=== PATIENT | female | born 1980 | race Caucasian/White ===

== ENCOUNTER 2016-12-27 16:48 | Emergency (ER) | payer BC ==
[~2016-12-27] VITALS: Ht 165.1 cm; Wt 109.3 kg
[~2016-12-27 16:48] MED LIST: CHOL2000 PO; LEVO112T4 PO; OMEP40CA PO
[2016-12-27 17:01] VITALS: TEMP 36.8; Ht 165.1 cm; Wt 109.3 kg
[2016-12-27] MEDS ORDERED: ZOLP10TA PO (18:10)
[2016-12-27] MEDS ORDERED: SODIUM CHLORIDE 0.9% 1000ML 1,000 ML IV STA (18:13)
[2016-12-27] MEDS ORDERED: ONDANSETRON INJ 2 MG/ML 2 ML VIAL IV STA (18:13)
[2016-12-27] MEDS ORDERED: OPTIRAY 320 IV PRN (18:30)
[2016-12-27 18:43] LABS: BASO % 0.3 %; BASO ABS # 0.03 K/uL (0-0.2); COMPLETE YES; EOS % 3.8 %; HEMATOCRIT 42.4 % (37-47); IG% 0.3 %; LYMPH % 25.5 %; LYMPH ABS # 3.05 K/uL (1.2-3.4); MEAN CELL VOLUME 90.4 fL (80-100); MEAN CORPUSCULAR HEMOGLOBIN 31.1 pg (25-34); MEAN CORPUSCULAR HGB CONC 34.4 g/dl (32-36); MEAN PLATELET VOLUME 11.5 fL (7.4-10.4); MONO % 7.2 %; NEUT % 62.9 %; PLATELET COUNT 267 K/uL (130-400); RED BLOOD COUNT 4.69 M/uL (4.2-5.4); WHITE BLOOD COUNT 11.97 K/uL (4.8-10.8)
[2016-12-27] MEDS ORDERED: DULO60CA44 PO (18:45)
[2016-12-27] MEDS ORDERED: OMEP40CA41 PO (18:45)
[2016-12-27 18:46] LABS: BUN/CREATININE RATIO 13.6 (10-20); CREATININE 0.83 mg/dl (0.60-1.20); POTASSIUM 3.8 mmol/L (3.5-5.1)
[2016-12-27 18:49] LABS: MANUAL MICROSCOPIC REQUIRED? NO; REVIEW REQ? NO; URINE APPEARANCE CLEAR (CLEAR); URINE BILIRUBIN NEG (NEG); URINE COLOR YELLOW; URINE NITRITE NEG (NEG); URINE PH 5.5 (4.5-7.5); UROBILINOGEN NEG (NEG)
[2016-12-27] MEDS ORDERED: MoRPHine SULFATE 4 MG/ML 1 ML CARP\\VIAL IV PRN (19:30)
[2016-12-27] MEDS ORDERED: LORAZEPAM 2 MG/ML 1 ML VIAL IV STA (20:38)
--- NOTE | 2016-12-27 21:20 | DIAGNOSTIC IMAGING REPORT ---
ABDOMEN AND PELVIS CT WITH IV AND ORAL CONTRAST CT DOSE: 1275.24 mGy.cm HISTORY: Generalized abdominal pain. TECHNIQUE: Multiaxial CT images of the abdomen and pelvis were performed following the use of intravenous and oral contrast. COMPARISON STUDY: Abdominal ultrasound 02/01/2016. FINDINGS: The lung bases are clear. Cholecystectomy. Hepatic steatosis. The spleen, pancreas, adrenal glands, and kidneys are unremarkable. No retroperitoneal lymphadenopathy. Normal bladder. The uterus is unremarkable. The ovaries are symmetric. No bowel wall thickening or obstruction. A few colonic diverticula. Normal appendix. IMPRESSION: 1. No bowel wall thickening or obstruction. 2. Normal appendix. 3. Cholecystectomy. 4. Hepatic steatosis. Electronically signed by: Abiel Borrego M.D. 12/27/2016 9:18 PM Dictated Date/Time: 12/27/2016 9:12 PM
[2016-12-28] MEDS ORDERED: ONDANSETRON HOME PACK 4MG OD TAB PO ONE
[2016-12-28] MEDS ORDERED: ONDA4TAB10 SL (00:03)
--- NOTE | 2016-12-28 00:12 | EMERGENCY ROOM VISIT NOTE ---
ED Visit Note First contact with patient: 22:09 Patient care was assumed from Akhil Sewell PA-C at the time of shift change. Please see Mr. Sewell's dictation for full history of present illness and emergency Department course prior to my assumption of care. At the time of shift change the patient had blood work and CT scan done for abdominal pain. She does have a very mild white blood cell count elevation. Her CT scan did not show obvious findings to describe her symptoms. Because of this ultrasound was performed. Ultrasound was read by [facility] as below: Preliminary Findings Only See Final Report For Complete Findings US PELVIC/ENDOVAG: Comparison same day CT abdomen pelvis. Surgically absent uterus. Cervix appears within normal limits. Small cysts within the right ovary which contains normal blood flow. Normal blood flow to the left ovary which contains a 2 cm cyst which is probably benign. No free fluid. No adnexal masses. Bladder is grossly unremarkable. On repeat abdominal examination, the patient does not have significant tenderness or evidence of peritonitis. I discussed the patient's findings at length with her and her . Overall the patient does appear stable for discharge home. I offered her pain medication to use at home, but she declined. She would like some nausea medicine which appears reasonable. The patient will be given a short course of Zofran. I strongly recommended the patient see her primary care physician in the next few days. She was also thoroughly educated on the importance of returning to the ER with any new, worsening, or concerning symptoms. The patient does appear reasonable and understands the importance of returning if she has evolution of her symptoms. She was discharged home in the care of her who is acting as the entry level truck driver today. Current/Historical Medications Scheduled Cholecalciferol (Vitamin D3), 4,000 INTER.UNIT PO QAM Duloxetine Hcl (Cymbalta), 60 MG PO HS Levothyroxine Sodium (Levothyroxine Sodium), 112 MCG PO DAILY Omeprazole (Prilosec), 40 MG PO QAM Ondasetron Odt (Zofran Odt), 4 MG SL Q6H Scheduled PRN Zolpidem Tartrate (Ambien), 5 MG PO HS PRN for Sleep Allergies Coded Allergies: Adhesives (Verified Allergy, Unknown, RASH, 02/22/16) Sulfamethoxazole w/Trimethoprim (Verified Allergy, Unknown, RASH, 02/22/16) Vital Signs Date Time Temp Pulse Resp B/P Pulse Ox O2 Delivery O2 Flow Rate FiO2 12/27/16 22:17 80 18 143/71 12/27/16 19:36 60 18 152/83 98 Room Air 12/27/16 19:22 59 12/27/16 17:01 36.8 72 18 164/100 97 Room Air Laboratory Results 12/27/16 18:10 Red Blood Count 4.69, Mean Corpuscular Volume 90.4, Mean Corpuscular Hemoglobin 31.1, Mean Corpuscular Hemoglobin Concent 34.4, Mean Platelet Volume 11.5, Neutrophils (%) (Auto) 62.9, Lymphocytes (%) (Auto) 25.5, Monocytes (%) (Auto) 7.2, Eosinophils (%) (Auto) 3.8, Basophils (%) (Auto) 0.3, Neutrophils # (Auto) 7.54, Lymphocytes # (Auto) 3.05, Monocytes # (Auto) 0.86, Eosinophils # (Auto) 0.45, Basophils # (Auto) 0.03 12/27/16 18:10 Test 12/27/16 18:00 12/27/16 18:10 Urine Color YELLOW Urine Appearance CLEAR (CLEAR) Urine pH 5.5 (4.5-7.5) Urine Specific [place] 1.010 (1.000-1.030) Urine Protein NEG (NEG) Urine Glucose (UA) NEG (NEG) Urine Ketones NEG (NEG) Urine Occult Blood NEG (NEG) Urine Nitrite NEG (NEG) Urine Bilirubin NEG (NEG) Urine Urobilinogen NEG (NEG) Urine Leukocyte Esterase NEG (NEG) White Blood Count 11.97 K/uL (4.8-10.8) Red Blood Count 4.69 M/uL (4.2-5.4) Hemoglobin 14.6 g/dL (12.0-16.0) Hematocrit 42.4 % (37-47) Mean Corpuscular Volume 90.4 fL (80-100) Mean Corpuscular Hemoglobin 31.1 pg (25-34) Mean Corpuscular Hemoglobin Concent 34.4 g/dl (32-36) Platelet Count 267 K/uL (130-400) Mean Platelet Volume 11.5 fL (7.4-10.4) Neutrophils (%) (Auto) 62.9 % Lymphocytes (%) (Auto) 25.5 % Monocytes (%) (Auto) 7.2 % Eosinophils (%) (Auto) 3.8 % Basophils (%) (Auto) 0.3 % Neutrophils # (Auto) 7.54 K/uL (1.4-6.5) Lymphocytes # (Auto) 3.05 K/uL (1.2-3.4) Monocytes # (Auto) 0.86 K/uL (0.11-0.59) Eosinophils # (Auto) 0.45 K/uL (0-0.5) Basophils # (Auto) 0.03 K/uL (0-0.2) RDW Standard Deviation 42.2 fL (36.4-46.3) RDW Coefficient of Variation 12.8 % (11.5-14.5) Immature Granulocyte % (Auto) 0.3 % Immature Granulocyte # (Auto) 0.04 K/uL (0.00-0.02) Anion Gap 5.0 mmol/L (3-11) Est Creatinine Clear Calc Drug Dose 113.0 ml/min Estimated GFR () 103.7 Estimated GFR (Non- 89.5 BUN/Creatinine Ratio 13.6 (10-20) Calcium Level 9.0 mg/dl (8.5-10.1) Total Bilirubin 0.5 mg/dl (0.2-1) Direct Bilirubin 0.1 mg/dl (0-0.2) Aspartate Amino Transf (AST/SGOT) 40 U/L (15-37) Alanine Aminotransferase (ALT/SGPT) 127 U/L (12-78) Alkaline Phosphatase 100 U/L (45-117) Total Protein 7.7 gm/dl (6.4-8.2) Albumin 3.7 gm/dl (3.4-5.0) Lipase 268 U/L (73-393) Medications Administered Medications (Trade) Dose Ordered Sig/Eitan Route Start Time Stop Time Status Last Admin Dose Admin Sodium Chloride (Nss 1000ml) 1,000 ml @ 999 mls/hr Q1H1M STAT IV 12/27/16 18:13 12/27/16 19:13 DC 12/27/16 18:23 999 MLS/HR Ondansetron HCl (Zofran Inj) 4 mg NOW STAT IV 12/27/16 18:13 12/27/16 18:15 DC 12/27/16 18:22 4 MG Morphine Sulfate (MoRPHine SULFATE INJ) 4 mg Q1H PRN IV 12/27/16 19:30 01/10/17 19:29 12/27/16 19:35 4 MG Lorazepam (Ativan Inj) 0.5 mg NOW STAT IV 12/27/16 20:38 12/27/16 20:40 DC 12/27/16 20:47 0.5 MG Departure Information Impression Primary Impression: Abdominal pain Additional Impression: Nausea Dispostion Home / Self-Care Condition GOOD Prescriptions Ondasetron Odt (ZOFRAN ODT) 4 Mg Tab 4 MG SL Q6H for Nausea, #12 TAB Prov: Chad Lane PA-C 12/28/16 Forms Call Back Authorization, HOME CARE DOCUMENTATION FORM, Work Instructions, Additional Instructions: Patient seen and evaluated today in the emergency department medical care. Return to work on 12/30/2016. Please excuse. IMPORTANT VISIT INFORMATION Patient Instructions [facility] Additional Instructions You were seen and evaluated today on an emergency basis only. This is not a substitute for, or an effort to provide, complete comprehensive medical care. It is not possible to recognize and treat all injuries or illnesses in a single emergency department visit. For this reason it is recommended that you followup with your primary care physician this week for ongoing care and evaluation. Drink plenty of fluids and remain well hydrated. Zofran 1 tablet every 6 hrs as needed for nausea. You are welcome to return to the emergency department anytime with new, worsening, or concerning symptoms. Work Instructions Additional Work Instructions: Patient seen and evaluated today in the emergency department medical care. Return to work on 12/30/2016. Please excuse. Problem Qualifiers
[2016-12-28 00:20] VITALS: BP 128/70; PULSE 79; O2SAT 98
--- NOTE | 2016-12-28 06:26 | DIAGNOSTIC IMAGING REPORT ---
EXAMINATION: PELVIC ULTRASOUND CLINICAL HISTORY: hx partial hysterectomy; RLQ pain COMPARISON STUDY: None FINDINGS: The uterus measured absent surgically. The endometrial stripe measured . The right ovary measured 3.1 cm with normal vascular flow. The left ovary measured 3.1 cm with normal vascular flow. 2 cm cyst.. There is no ultrasonographic evidence of ovarian torsion. It should be noted that ovarian torsion can be present with normal Doppler ultrasonographic findings. There was no evidence of pathologic free pelvic fluid. IMPRESSION: 2 cm left ovarian cyst. Otherwise negative study status post partial hysterectomy. Electronically signed by: Vic Godfrey M.D. 12/28/2016 6:25 AM Dictated Date/Time: 12/28/2016 6:23 AM
--- NOTE | 2016-12-28 10:41 | EMERGENCY ROOM VISIT NOTE ---
ED Visit Note First contact with patient: 17:59 Chief Complaint: Abdominal pain. History of Present Illness: Ms. Flores is a 36 year-old white female who ambulates into the ED complaining of right lower quadrant abdominal pain. Historically patient reports she has a history of GERD, gastritis, colitis and is status post section 2, cholecystectomy and hysterectomy. Patient reports a gradual onset of crampy pain just superior to the umbilicus quadrant abdominal pain that started 2 days ago. Since that time the pain has been gradually increasing in intensity and over the last 12 hours the pain has radiated into the right lower quadrant. Currently she describes the pain as a sharp sensation at rest that becomes stabbing with movement. She rates her discomfort 4/10 at rest and then escalates to 7/10. She has not identified any other aggravating factors except movement of her pain and rest keep her pain at baseline. She reports shortly after the onset of pain she took ibuprofen without relief of her discomfort. Associated with her discomfort she reports that she has been having chills without per fever and nausea without vomiting. Patient denies sweats, skin eruptions, skin color changes, upper respiratory tract symptoms, shortness of breath, chest pain, diarrhea, constipation, rectal bleeding, black/tarry stools, urinary symptoms, hematuria, vaginal bleeding, vaginal discharge, back/flank pain. Review of Systems: As noted above in history of present illness. All body systems were reviewed and found to be negative as noted above. Past Medical History: As previously noted and kidney stones, hypothyroidism. Current Medications: Levothyroxine, vitamins, Ambien, Prilosec, Cymbalta. Allergies to Medications: Bactrim. Social History: Patient is currently employed; she feels safe in her home environment; she admits to tobacco use and denies alcohol use. Physical Examination: Vital Signs: Date Time Temp Pulse Resp B/P Pulse Ox O2 Delivery O2 Flow Rate FiO2 12/28/16 00:20 79 18 128/70 98 12/27/16 22:17 80 18 143/71 12/27/16 19:36 60 18 152/83 98 Room Air 12/27/16 19:22 59 12/27/16 17:01 36.8 72 18 164/100 97 Room Air GENERAL: 36-year-old female in mild to moderate distress due to pain, nontoxic- appearing, afebrile and hemodynamically stable. NEUROLOGICAL: Awake, alert and oriented to person, place and time. Answering questions appropriately and following commands. Normal gait. Good hand eye coordination. SKIN: Warm, dry and pink. No soft tissue eruptions or trauma noted. HEENT: Atraumatic and normocephalic. PERRLA. Sclera white and conjunctiva pink. Oral cavity moist and pink. Pharynx is nonerythematous or edematous. Speech normal. No lymphadenopathy. Trachea midline. No jugular venous distention. BACK: No tenderness over the bony spine. No CVA tenderness. THORAX: Lungs sounds are clear to auscultation and equal bilaterally with symmetrical chest wall. No wheezing, rales or rhonchi. No crepitus, tenderness , subcutaneous air or deformities noted. HEART: Regular rate and rhythm. No gallops, rubs or murmurs are appreciated. ABDOMEN: Obese and soft with moderate tenderness in the area just superior to McBurney's point and extending superiorly to the mid quadrant with mild guarding.. Positive bowel sounds in all quadrants. No rigidity or organomegaly. EXTREMITIES: Moves all extremities well on command and with purpose. All distal neurovascular statuses are intact and equal bilaterally. ED Course: Patient is assessed as noted above. Laboratory Testing: Test 12/27/16 18:00 12/27/16 18:10 Range/Units Urine Color YELLOW Urine Appearance CLEAR CLEAR Urine pH 5.5 4.5-7.5 Urine Specific [place] 1.010 1.000-1.030 Urine Protein NEG NEG Urine Glucose (UA) NEG NEG Urine Ketones NEG NEG Urine Occult Blood NEG NEG Urine Nitrite NEG NEG Urine Bilirubin NEG NEG Urine Urobilinogen NEG NEG Urine Leukocyte Esterase NEG NEG White Blood Count 11.97 4.8-10.8 K/uL Red Blood Count 4.69 4.2-5.4 M/uL Hemoglobin 14.6 12.0-16.0 g/dL Hematocrit 42.4 37-47 % Mean Corpuscular Volume 90.4 80-100 fL Mean Corpuscular Hemoglobin 31.1 25-34 pg Mean Corpuscular Hemoglobin Concent 34.4 32-36 g/dl Platelet Count 267 130-400 K/uL Mean Platelet Volume 11.5 7.4-10.4 fL Neutrophils (%) (Auto) 62.9 % Lymphocytes (%) (Auto) 25.5 % Monocytes (%) (Auto) 7.2 % Eosinophils (%) (Auto) 3.8 % Basophils (%) (Auto) 0.3 % Neutrophils # (Auto) 7.54 1.4-6.5 K/uL Lymphocytes # (Auto) 3.05 1.2-3.4 K/uL Monocytes # (Auto) 0.86 0.11-0.59 K/uL Eosinophils # (Auto) 0.45 0-0.5 K/uL Basophils # (Auto) 0.03 0-0.2 K/uL RDW Standard Deviation 42.2 36.4-46.3 fL RDW Coefficient of Variation 12.8 11.5-14.5 % Immature Granulocyte % (Auto) 0.3 % Immature Granulocyte # (Auto) 0.04 0.00-0.02 K/uL Sodium Level 141 136-145 mmol/L Potassium Level 3.8 3.5-5.1 mmol/L Chloride Level 103 98-107 mmol/L Carbon Dioxide Level 33 21-32 mmol/L Anion Gap 5.0 3-11 mmol/L Blood Urea Nitrogen 11 7-18 mg/dl Creatinine 0.83 0.60-1.20 mg/dl Est Creatinine Clear Calc Drug Dose 113.0 ml/min Estimated GFR () 103.7 Estimated GFR (Non- 89.5 BUN/Creatinine Ratio 13.6 10-20 Random Glucose 97 70-99 mg/dl Calcium Level 9.0 8.5-10.1 mg/dl Total Bilirubin 0.5 0.2-1 mg/dl Direct Bilirubin 0.1 0-0.2 mg/dl Aspartate Amino Transf (AST/SGOT) 40 15-37 U/L Alanine Aminotransferase (ALT/SGPT) 127 12-78 U/L rAlkaline Phosphatase 100 45-117 U/L Total Protein 7.7 6.4-8.2 gm/dl Albumin 3.7 3.4-5.0 gm/dl Lipase 268 73-393 U/L Contrast Abdominal/Pelvic CT: Was reviewed by myself and read by the radiologist and showing lung bases are clear, status post cholecystectomy, hepatic steatosis, spleen/pancreas/adrenal glands/kidneys are unremarkable, no retroperitoneal lymphadenopathy, normal-appearing bladder, ovaries are symmetrical, no bowel wall thickening or obstruction, a few colonic diverticula and normal-appearing appendix. Transvaginal/Pelvic Ultrasound: Pending. Patient was hydrated with normal saline; she initially received 4 mg of Zofran IV for nausea; she refused narcotics for pain. She did cough and the nursing staff and the patient requested narcotics for pain and she was given 4 mg of morphine IV; then received an additional call for the nursing reporting patient was having more pain more diffusely in her abdomen. She was reassessed and reported to me previously that when she was given morphine she gets abdominal cramping primarily in the stomach area. I ordered for her 0.5 mg of Ativan IV which subsequently relieved the cramping and did reevaluate her abdomen present post Ativan and she was experiencing tenderness and right lower quadrant as previously described but no signs of peritonitis. Patient was reassessed multiple times during her stay in the emergency department. Patient's case was reviewed with Dr. Mistry; we agreed on diagnostic approach, treatment, disposition and plan. Patient's care was transferred to Chad Lane PA-C at the end of my shift pending ultrasound testing and results. Patient was educated about tonalok's findings. Clinical Impression: Right lower quadrant abdominal pain. Decision-Making: Initially my differential diagnosis I considered appendicitis, hearing cyst rupture, constipation, bowel obstruction, diverticulitis, urinary tract infection and other causes. Disposition and Plan: Please see Mr. Lane's notes and orders for final disposition and plan.
[2016-12-28] MEDS ORDERED: PRED20TA PO (14:41)
== END 2016-12-28 00:21 | disposition home or self-care (01) ==
LOC: C.EDB 16:49
DX: R10.31 Right lower quadrant pain (principal); K21.9 Gastro-esophageal reflux disease without esophagitis; E03.9 Hypothyroidism, unspecified; F17.200 Nicotine dependence, unspecified, uncomplicated; Z79.899 Other long term (current) drug therapy; Z87.442 Personal history of urinary calculi; Z88.8 Allergy status to other drugs, medicaments and biological substances

== ENCOUNTER 2016-12-28 11:43 | Emergency (ER) | payer BC ==
[~2016-12-28] VITALS: Ht 165.1 cm; Wt 109.6 kg
[~2016-12-28 11:43] MED LIST changes: +DULO60CA44 PO; +OMEP40CA41 PO; +ONDA4TAB10 SL; +ZOLP10TA PO
[2016-12-28 11:47] VITALS: TEMP 37; Ht 165.1 cm; Wt 109.6 kg
[2016-12-28] MEDS ORDERED: DiphenhydrAMINE HCL 50 MG/ML VIAL IV STA (12:34)
[2016-12-28] MEDS ORDERED: SODIUM CHLORIDE 0.9% 1000ML 1,000 ML IV STA (12:34)
[2016-12-28] MEDS ORDERED: FAMOTIDINE 20MG/102 ML D5W IV STA (12:34)
[2016-12-28] MEDS ORDERED: METHYLPREDNISOLONE 125 MG VIAL IV STA (12:34)
--- NOTE | 2016-12-28 12:40 | EMERGENCY ROOM VISIT NOTE ---
History Report prepared by Jeanette: Tho Reed Under the Supervision of: Dr. Ann Pittman M.D. First contact with patient: 12:18 Chief Complaint: ALLERGIC REACTION Stated Complaint: REACTION TO CT DYE Nursing Triage Summary: thinks she is having an allergic reaction to her ct contrast that was given to her last night History of Present Illness The patient is a 36 year old female who presents to the Emergency Room with complaints of persistent rash that started last night. The patient had complains of feeling hot and itchy. She notes the rash is red. With walking, the patient experienced some shortness of breath, but laying down she feels fine. Last night, she was in the ED for abdominal pain that had started 3 days ago. She is still having this discomfort today. She was given contrast for a CT scan and medications including Zofran, Ativan, and Morphine. The patient denies urinary symptoms. Source of History: patient Onset: last night Position: other (global) Timing: other (persistent) Associated Symptoms: + SOB (with walking), + abdominal pain, No urinary symptoms Note: Other associated symptoms: feeling itchy and hot Review of Systems See HPI for pertinent positives & negatives. A total of 10 systems reviewed and were otherwise negative. Past Medical & Surgical Medical Problems: (1) Asthma Surgical Problems: (1) delivery delivered (2) History of cholecystectomy Family History FH: seizures Kidney stone Lung disease Social History Smoking Status: Current Every Day Smoker Marital Status: Housing Status: lives with family Occupation Status: employed Current/Historical Medications Scheduled Cholecalciferol (Vitamin D3), 4,000 INTER.UNIT PO QAM Duloxetine Hcl (Cymbalta), 60 MG PO HS Levothyroxine Sodium (Levothyroxine Sodium), 112 MCG PO DAILY Omeprazole (Prilosec), 40 MG PO QAM Ondasetron Odt (Zofran Odt), 4 MG SL Q6H Prednisone (Prednisone), 40 MG PO DAILY Scheduled PRN Zolpidem Tartrate (Ambien), 5 MG PO HS PRN for Sleep Allergies Coded Allergies: Adhesives (Verified Allergy, Unknown, RASH, 02/22/16) Sulfamethoxazole w/Trimethoprim (Verified Allergy, Unknown, RASH, 02/22/16) Physical Exam Vital Signs Date Time Temp Pulse Resp B/P Pulse Ox O2 Delivery O2 Flow Rate FiO2 12/28/16 14:39 63 16 145/86 96 12/28/16 14:02 64 18 132/78 93 Room Air 12/28/16 12:47 65 18 120/76 96 Room Air 12/28/16 12:45 71 12/28/16 12:13 95 Room Air 12/28/16 11:47 37.0 84 18 147/87 96 Room Air Physical Exam Vital signs reviewed. General: Well-appearing female, in no significant distress. HEENT: No scleral icterus, PERRLA, neck supple. Atraumatic. No swelling to oral mucosa. Cardiovascular: Regular rate and rhythm, no extra sounds. Pulmonary: Clear to auscultation bilaterally, normal work of breathing. Abdomen: Soft, tenderness to palpation of RLQ, nondistended, positive bowel sounds. Musculoskeletal: Atraumatic, no peripheral edema. Neurologic: Patient awake alert and oriented x 3, full strength in all 4 extremities. Cranial nerves 2 through 12 grossly intact. Skin: Erythema to face, upper chest, and upper arm. Medical Decision & Procedures Laboratory Results 12/28/16 12:06 Red Blood Count 4.56, Mean Corpuscular Volume 87.9, Mean Corpuscular Hemoglobin 30.7, Mean Corpuscular Hemoglobin Concent 34.9, Mean Platelet Volume 11.2, Neutrophils (%) (Auto) 71.4, Lymphocytes (%) (Auto) 19.6, Monocytes (%) (Auto) 5.4, Eosinophils (%) (Auto) 3.0, Basophils (%) (Auto) 0.2, Neutrophils # (Auto) 6.97, Lymphocytes # (Auto) 1.91, Monocytes # (Auto) 0.53, Eosinophils # (Auto) 0.29, Basophils # (Auto) 0.02 12/28/16 12:06 Test 12/28/16 12:06 White Blood Count 9.76 K/uL (4.8-10.8) Red Blood Count 4.56 M/uL (4.2-5.4) Hemoglobin 14.0 g/dL (12.0-16.0) Hematocrit 40.1 % (37-47) Mean Corpuscular Volume 87.9 fL (80-100) Mean Corpuscular Hemoglobin 30.7 pg (25-34) Mean Corpuscular Hemoglobin Concent 34.9 g/dl (32-36) Platelet Count 252 K/uL (130-400) Mean Platelet Volume 11.2 fL (7.4-10.4) Neutrophils (%) (Auto) 71.4 % Lymphocytes (%) (Auto) 19.6 % Monocytes (%) (Auto) 5.4 % Eosinophils (%) (Auto) 3.0 % Basophils (%) (Auto) 0.2 % Neutrophils # (Auto) 6.97 K/uL (1.4-6.5) Lymphocytes # (Auto) 1.91 K/uL (1.2-3.4) Monocytes # (Auto) 0.53 K/uL (0.11-0.59) Eosinophils # (Auto) 0.29 K/uL (0-0.5) Basophils # (Auto) 0.02 K/uL (0-0.2) RDW Standard Deviation 40.3 fL (36.4-46.3) RDW Coefficient of Variation 12.6 % (11.5-14.5) Immature Granulocyte % (Auto) 0.4 % Immature Granulocyte # (Auto) 0.04 K/uL (0.00-0.02) Anion Gap 8.0 mmol/L (3-11) Est Creatinine Clear Calc Drug Dose 109.3 ml/min Estimated GFR () 99.3 Estimated GFR (Non- 85.7 BUN/Creatinine Ratio 12.4 (10-20) Calcium Level 8.9 mg/dl (8.5-10.1) Magnesium Level 1.8 mg/dl (1.8-2.4) Total Bilirubin 0.5 mg/dl (0.2-1) Direct Bilirubin 0.1 mg/dl (0-0.2) Aspartate Amino Transf (AST/SGOT) 67 U/L (15-37) Alanine Aminotransferase (ALT/SGPT) 166 U/L (12-78) Alkaline Phosphatase 121 U/L (45-117) Total Protein 7.2 gm/dl (6.4-8.2) Albumin 3.4 gm/dl (3.4-5.0) Laboratory results per my review. Medications Administered Medications (Trade) Dose Ordered Sig/Eitan Route Start Time Stop Time Status Last Admin Dose Admin Diphenhydramine HCl (Benadryl Inj) 50 mg NOW STAT IV 3/22/17 12:34 12/28/16 12:36 DC 12/28/16 12:41 50 MG Methylprednisolone Sodium Succinate 125 mg 125 mg NOW STAT IV 12/28/16 12:34 12/28/16 12:36 DC 12/28/16 12:41 125 MG Sodium Chloride (Nss 1000ml) 1,000 ml @ 999 mls/hr Q1H1M STAT IV 12/28/16 12:34 12/28/16 13:34 DC 12/28/16 12:41 999 MLS/HR Famotidine (Pepcid 20mg/100 ml) 20 mg ONE STAT IV 12/28/16 12:34 12/28/16 12:36 DC 12/28/16 12:41 20 MG ED Course 1231: Past medical records reviewed. The patient was evaluated in room A9. A complete history and physical examination was performed. 1234: Ordered Famotidine 20 mg IV, NSS 1000 ml @ 999 mls/hr IV, Solu-Medrol IV 125 mg IV, Benadryl Inj 50 mg IV. 1414: Upon reevaluation, the patient appeared to have improvement of her symptoms. I discussed findings with her. She verbalized agreement of the treatment plan. The patient was discharged home. Medical Decision Differential diagnosis: Etiologies such as allergic reaction, anaphylaxis, urticaria, Obando-Frederick syndrome, toxic epidermal necrolysis, erythema multiforme, cellulitis, as well as others were entertained. This patient was evaluated and appeared to be in no significant distress. IV access was obtained and laboratory work was drawn. The patient was given IV Benadryl, IV Solu-Medrol and IV Pepcid along with IV hydration. Laboratory work reveals elevated liver enzymes consistent with previous numbers. I suspect the patient is having a delayed reaction to the IV contrast. She was given a prescription for 4 more days of oral prednisone and will use Benadryl as needed. The patient was instructed to avoid IV CT contrast in the future or request pretreatment. She will return to the ER for worsening of symptoms or any medical concerns. Impression Primary Impression: Allergic reaction Scribe Attestation The scribe's documentation has been prepared under my direction and personally reviewed by me in its entirety. I confirm that the note above accurately reflects all work, treatment, procedures, and medical decision making performed by me. Departure Information Dispostion Home / Self-Care Prescriptions Prednisone (Prednisone) 20 Mg Tab 40 MG PO DAILY, #8 TAB Prov: Ann Pittman M.D. 12/28/16 Referrals [place] Nicole M.D. (PCP) Forms HOME CARE DOCUMENTATION FORM, IMPORTANT VISIT INFORMATION Patient Instructions My [facility] Additional Instructions Diagnosis: Allergic reaction Benadryl 25-50 mg every 6 hours as needed for allergic symptoms. Prednisone 40 mg daily for 4 more days. Drink plenty of clear fluids. Avoid CT IV contrast in the future or request pretreatment. Follow-up with your physician this week for reevaluation of the abdominal discomfort. Return to the ER for worsening of symptoms or any medical concerns. Problem Qualifiers Primary Impression: Allergic reaction Encounter type: initial encounter Qualified Codes: T78.40XA - Allergy, unspecified, initial encounter
[2016-12-28 12:45] LABS: BASO % 0.2 %; BASO ABS # 0.02 K/uL (0-0.2); COMPLETE YES; HEMATOCRIT 40.1 % (37-47); IG% 0.4 %; LYMPH % 19.6 %; LYMPH ABS # 1.91 K/uL (1.2-3.4); MEAN CELL VOLUME 87.9 fL (80-100); MEAN CORPUSCULAR HEMOGLOBIN 30.7 pg (25-34); MEAN CORPUSCULAR HGB CONC 34.9 g/dl (32-36); MEAN PLATELET VOLUME 11.2 fL (7.4-10.4); MONO % 5.4 %; NEUT % 71.4 %; PLATELET COUNT 252 K/uL (130-400); RED BLOOD COUNT 4.56 M/uL (4.2-5.4); WHITE BLOOD COUNT 9.76 K/uL (4.8-10.8)
[2016-12-28 12:58] LABS: BUN/CREATININE RATIO 12.4 (10-20); CALCIUM 8.9 mg/dl (8.5-10.1); CREATININE 0.86 mg/dl (0.60-1.20); MAGNESIUM 1.8 mg/dl (1.8-2.4); POTASSIUM 3.8 mmol/L (3.5-5.1)
[2016-12-28 14:39] VITALS: BP 145/86; PULSE 63; O2SAT 96
[2016-12-28] MEDS ORDERED: PRED20TA PO (14:41)
== END 2016-12-28 14:48 | disposition home or self-care (01) ==
LOC: C.EDA 11:53
DX: T78.40XA Allergy, unspecified, initial encounter (principal); X58.XXXA Exposure to other specified factors, initial encounter; J45.909 Unspecified asthma, uncomplicated; F17.200 Nicotine dependence, unspecified, uncomplicated; Z79.899 Other long term (current) drug therapy; Z90.49 Acquired absence of other specified parts of digestive tract; Z88.2 Allergy status to sulfonamides; Z91.09 Other allergy status, other than to drugs and biological substances; Z82.0 Family history of epilepsy and other diseases of the nervous system; Z84.1 Family history of disorders of kidney and ureter

== ENCOUNTER → 2017-02-16 | Outpatient (CLI) | payer BC ==
[~2017-02-16] MED LIST changes: -OMEP40CA PO; +PRED20TA PO
[2017-02-16 14:46] LABS: HEMATOCRIT 40.6 % (37-47); MEAN CELL VOLUME 91.2 fL (80-100); MEAN CORPUSCULAR HEMOGLOBIN 30.8 pg (25-34); MEAN CORPUSCULAR HGB CONC 33.7 g/dl (32-36); MEAN PLATELET VOLUME 10.6 fL (7.4-10.4); PLATELET COUNT 241 K/uL (130-400); RED BLOOD COUNT 4.45 M/uL (4.2-5.4); WHITE BLOOD COUNT 9.66 K/uL (4.8-10.8)
[2017-02-16 15:22] LABS: ALT/SGPT 150 U/L (12-78); AST/SGOT 51 U/L (15-37); BLOOD UREA NITROGEN 10 mg/dl (7-18); BUN/CREATININE RATIO 11.2 (10-20); CALCIUM 8.8 mg/dl (8.5-10.1); CARBON DIOXIDE 34 mmol/L (21-32); CHLORIDE 103 mmol/L (98-107); CREATININE 0.85 mg/dl (0.60-1.20); GLUCOSE 168 mg/dl (70-99); POTASSIUM 3.8 mmol/L (3.5-5.1); SODIUM 140 mmol/L (136-145)
[2017-02-16 15:24] LABS: ALKALINE PHOSPHATASE 110 U/L (45-117)
== END | disposition home or self-care (01) ==
LOC: C.LABSPEC 09:48
PROVIDERS: ATTEND Family Medicine
DX: K92.2 Gastrointestinal hemorrhage, unspecified (principal)